=== PATIENT | male | born 2000 | race Caucasian/White ===

== ENCOUNTER 2019-03-06 21:57 | Emergency (ER) | payer MEDICARE, OTHER ==
[~2019-03-06] VITALS: Ht 149.9 cm; Wt 48.5 kg
[2019-03-06 22:40] VITALS: BP 121/87
--- NOTE | 2019-03-06 23:05 | RAD ---
KNEE LEFT 3V History: Left knee injury. History of prior knee surgery and arthrosis disorder. FINDINGS: There is chronic appearing deformity about the knee, particularly at the proximal tibia and fibula. There are anterior plate and screws at the anterior tibia. No evidence of acute fracture. No evidence of acute bone destruction. There is asymmetry at the knee joint, with widening of the medial joint and anterior joint, and shift of the tibia and fibula laterally relative to the femur. No significant soft tissue abnormality. IMPRESSION: 1. No evidence of acute fracture. 2. Chronic changes about the knee. Electronically signed by: Jack Palmer MD (03/06/2019 11:02 PM) [facility]
--- NOTE | 2019-03-06 23:25 | PHYS DOC ---
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 He is brought in tonight for continued pain in this L knee. He was actually supposed to participate in a [employer] event tomorrow. (PINKY AC) Review of Systems Review of Systems Constitutional: Denies fever or chills Respiratory: Denies cough or shortness of breath [] Cardiovascular: No additional information not addressed in HPI [] GI: Denies abdominal pain, nausea, vomiting, bloody stools or diarrhea [] Musculoskeletal: Denies back pain. Reports L knee pain Integument: Denies rash or skin lesions [] Neurologic: Denies headache All other systems were reviewed and found to be within normal limits, except as documented in this note. (PINKY AC) Allergies Allergies Allergies Coded Allergies Type Severity Reaction Last Updated Verified No Known Drug Allergies 03/06/19 No (YASH ROSEN MD) Physical Exam Physical Exam Constitutional: Well developed, well nourished, no acute distress, non-toxic appearance. [] Neck: Normal range of motion, no tenderness, supple, no stridor. [] Cardiovascular:Heart rate regular rhythm, no murmur [] Lungs & Thorax: Bilateral breath sounds clear to auscultation [] Abdomen: Bowel sounds normal, soft, no tenderness, no masses, no pulsatile masses. [] Skin: Warm, dry, no erythema, no rash. [] Back: No tenderness, no CVA tenderness. [] Extremities: No cyanosis, no clubbing, ROM intact, no edema. L knee tender to palpation over patella and with full extension. Neurologic: Alert and oriented X 3, normal motor function, normal sensory function, no focal deficits noted. Pt at baseline Psychologic: Affect normal, judgement normal, mood normal. [] (PINKY AC) Current Patient Data Vital Signs Vital Signs Date Time Temp Pulse Resp B/P (MAP) Pulse Ox O2 Delivery O2 Flow Rate FiO2 03/06/19 22:40 99.0 94 16 121/87 (98) 99 Room Air 99.0 (YASH ROSEN MD) EKG EKG [] (PINKY AC) Radiology/Procedures Radiology/Procedures No acute osseous findings. (PINKY AC) Course & Med Decision Making Course & Med Decision Making Pertinent Labs and Imaging studies reviewed. (See chart for details) Pt's xray is negative for acute osseous injury. Still concern for soft tissue injury. Pt currently doesn't have an orthopedist since his prior ortho was at [facility]. He was given name and number for ortho, Dr. Posadas. Fredo wrap was applied and recommend RICE. (PINKY AC) Course & Med Decision Making Staff Physician Addendum: I was working in the ER during the course of this patient's visit. I was available for consultation as needed, but I was not directly involved in the care of this patient. (YASH ROSEN MD) Dragon Disclaimer Dragon Disclaimer This electronic medical record was generated, in whole or in part, using a voice recognition dictation system. (PINKY AC) Departure Departure Impression: Primary Impression: Knee contusion Disposition: HOME, SELF-CARE Condition: STABLE Referrals: UNKNOWN PCP NAME (PCP) LESLY POSADAS MD Patient Instructions: Knee Sprain, [id number] Additional Instructions: Rest, Ice, Compress and Elevate. Follow up with orthopedics as needed. PINKY AC March 06, 2019 23:25 YASH ROSEN MD March 15, 2019 21:23
== END 2019-03-06 23:28 | disposition home or self-care (01) ==
LOC: ER 21:57
DX: S80.02XA Contusion of left knee, initial encounter (principal); M17.12 Unilateral primary osteoarthritis, left knee; W18.39XA Other fall on same level, initial encounter; Y93.89 Activity, other specified; Y92.89 Other specified places as the place of occurrence of the external cause; Y99.8 Other external cause status
CPT/HCPCS: 73562; 99284